=== PATIENT | male | born 1985 | race Caucasian/White ===

== ENCOUNTER 2022-08-03 08:27 | Day surgery (SDC) | payer OTHER ==
[2022-08-01 12:52] VITALS: BMI 38.0
[2022-08-03 09:31] VITALS: RESP 20
[2022-08-03] MEDS ORDERED: PROPOFOL 80 ML ONE (10:43)
[2022-08-03 11:57] VITALS: TEMP 97.8
[2022-08-03 12:05] VITALS: BP 126/66; PULSE 87
== END 2022-08-03 11:45 | disposition home or self-care (01) ==
LOC: FASU-ENDO 08:27
PROVIDERS: ATTEND Internal Medicine Gastroenterology
PROC: 0DBL8ZX Excision of Transverse Colon, Via Natural or Artificial Opening Endoscopic, Diagnostic (ICD-10-PCS; 2022-08-03)
PROC: 0DBP8ZX Excision of Rectum, Via Natural or Artificial Opening Endoscopic, Diagnostic (ICD-10-PCS; 2022-08-03)
PROC: 0DBM8ZX Excision of Descending Colon, Via Natural or Artificial Opening Endoscopic, Diagnostic (ICD-10-PCS; 2022-08-03)
PROC: 0DBK8ZX Excision of Ascending Colon, Via Natural or Artificial Opening Endoscopic, Diagnostic (ICD-10-PCS; principal; 2022-08-03 11:09)
DX: R19.7 Diarrhea, unspecified (principal); K63.89 Other specified diseases of intestine; K64.1 Second degree hemorrhoids
CPT/HCPCS: 88305-TC

== ENCOUNTER 2023-08-09 09:36 | Day surgery (SDC) | payer OTHER ==
[2023-08-07 13:40] VITALS: BMI 39.6
[2023-08-09 12:35] VITALS: RESP 16
[2023-08-09 12:45] VITALS: BP 126/99; PULSE 84
[2023-08-09 13:30] VITALS: TEMP 97.8
== END 2023-08-09 14:40 | disposition home or self-care (01) ==
LOC: JASU-ENDO 09:36
PROVIDERS: ATTEND Internal Medicine Gastroenterology
PROC: 0DJ08ZZ Inspection of Upper Intestinal Tract, Via Natural or Artificial Opening Endoscopic (ICD-10-PCS; principal; 2023-08-09 12:11)
DX: R10.13 Epigastric pain (principal)

== ENCOUNTER 2023-09-13 10:26 | Day surgery (SDC) | payer OTHER ==
[2023-09-03 10:54] VITALS: BMI 39.6
[2023-09-13] MEDS ORDERED: LIDOCAINE HCL/PF 2% SDV 5ML VIAL ONE (12:09)
[2023-09-13] MEDS ORDERED: FAMOTIDINE 20 MG/50 ML IVPB 20 MG/50 ML MG IVPB ONE (12:09)
[2023-09-13 13:17] VITALS: BP 120/77; PULSE 82; RESP 19; TEMP 98.2
== END 2023-09-13 13:18 | disposition home or self-care (01) ==
LOC: FASU-ENDO 10:26
PROVIDERS: ATTEND Internal Medicine Gastroenterology
PROC: 0DB68ZX Excision of Stomach, Via Natural or Artificial Opening Endoscopic, Diagnostic (ICD-10-PCS; 2023-09-13)
PROC: 0DB48ZX Excision of Esophagogastric Junction, Via Natural or Artificial Opening Endoscopic, Diagnostic (ICD-10-PCS; 2023-09-13)
PROC: 0DB98ZX Excision of Duodenum, Via Natural or Artificial Opening Endoscopic, Diagnostic (ICD-10-PCS; principal; 2023-09-13 12:17)
DX: K29.50 Unspecified chronic gastritis without bleeding (principal); K20.90 Esophagitis, unspecified without bleeding; R10.13 Epigastric pain
CPT/HCPCS: 88305-TC; 88342-TC